=== PATIENT | female | born 1965 | race Caucasian/White ===

== ENCOUNTER → 2019-05-03 | Outpatient (CLI) | payer BC ==
[~2019-05-03] MED LIST: REGADENOSON 0.4 MG/5 ML DISP.SYRIN. IV ONE
--- NOTE | 2019-05-03 11:40 | PCVCIMAG ---
APPROVED REPORT Study performed: 05/03/2019 09:12:20 EXAM: Comprehensive 2D, Doppler, and color-flow Echocardiogram Patient Location: Echo lab Status: routine BSA: 1.97 HR: 58 bpmBP: 110/80 mmHg Rhythm: NSR Other Information Study Quality: Technically Difficult Risk Factors: Cardiac Risk Factors: Hyperlipidemia, Smoking Indications Abnormal ECG Palpitations Pre op Hip Surgery 2D Dimensions IVSd: 8.27 (7-11mm)LVOT Diam: 18.15 (18-24mm) LVDd: 44.31 mm PWd: 8.11 (7-11mm)Ascending Ao: 27.48 (22-36mm) LVDs: 35.10 (25-40mm) Left Atrium: 33.77 (27-40mm) Aortic Root: 27.41 mm LV Single Plane 4CH: 52.69 % LV Single Plane 2CH: 48.65 % Volumes Left Atrial Volume (Systole) Single Plane 4CH: 24.39 mLSingle Plane 2CH: 54.90 mL LA ESV Index: 19.00 mL/m2 Aortic Valve AoV Peak Antonio.: 1.36 m/s AO Peak Gr.: 7.43 mmHg Mitral Valve E/A Ratio: 1.0 MV Decel. Time: 186.03 ms MV E Max Antonio.: 0.99 m/s MV A Antonio.: 1.04 m/s IVRT: 89.97 ms TDI E/Lateral E': 12.38E/Medial E': 9.00 Medial E' Antonio.: 0.11 m/s Lateral E' Antonio.: 0.08 m/s Pulmonary Valve PV Peak Gr.: 1.61 mmHg Pulmonary Vein P Vein S: 0.50 m/sP Vein A: 0.44 m/s P Vein D: 0.37 m/sP Vein A Dur.: 128.0 msec P Vein S/D Ratio: 1.35 Left Ventricle The left ventricle is normal size. There is normal LV segmental wall motion. There is normal left ventricular wall thickness. Left ventricular systolic function is normal. The left ventricular ejection fraction is within the normal range. LVEF is >55%. Right Ventricle The right ventricle is normal size. The right ventricular systolic function is normal. Atria The left atrium size is normal. The right atrium size is normal. Aortic Valve The aortic valve is normal in structure. No aortic regurgitation is present. There is no aortic valvular stenosis. Mitral Valve The mitral valve is normal in structure. Trace mitral regurgitation. No evidence of mitral valve stenosis. Tricuspid Valve The tricuspid valve is normal in structure. There is no tricuspid valve regurgitation noted. Pulmonic Valve The pulmonary valve is normal in structure. There is no pulmonic valvular regurgitation. Great Vessels The aortic root is normal in size. IVC is normal in size and collapses >50% with inspiration. Pericardium There is no pericardial effusion. <Conclusion> The left ventricle is normal size. LVEF is >55%. The aortic valve is normal in structure. The mitral valve is normal in structure. Trace mitral regurgitation. The tricuspid valve is normal in structure. The pulmonary valve is normal in structure. There is no pericardial effusion.
--- NOTE | 2019-05-04 12:32 | PCVCIMAG ---
APPROVED REPORT Imaging Protocol: Rest Tc-99m/Stress Tc-99m 1 day Study performed: 05/03/2019 10:17:01 Indication: Palpitations, Chest pain, Pre op Patient Location: Out-Patient Stress Nurse: Mary Ellen Francisco RN, Elisa Torres RN GA Tech:Sarthak PerezCECE Ht: 5 ft 5 in Wt: 200 lbs BSA: 1.98 m2 HR: 51 bpm BP: 129/73 mmHg BMI: 33.2 Rhythm: Sinus Bradycardia, Incomplete RBBB Medical History Medical History: Age, Hyperlipidemia, HTN, Family Hx of CAD, Smoker Medications: Albuterol, Xanax Allergies: No known drug allergies Resting Data Rest SPECT myocardial perfusion imaging was performed in supine position 45 minutes following the intravenous injection of 11.2 mCi of Tc-99m Sestamibi. Time of rest injection: 1000 Date: 05/03/2019 Administration Route: IV Administration Site: Right Arm Pharmacologic Stress Pharmacologic stress test was performed by injecting Regadenoson 0.4 mg IV push over 10-15 seconds immediately followed by the intravenous injection of 34.2 mCi of Tc-99m Sestamibi. Time of stress injection: 1110 Date: 05/03/2019 Administration Route: IV Administration Site: Right Arm Gated Stress SPECT was performed 45 minutes after stress injection. The images were gated to evaluate regional wall motion and calculate left ventricular ejection fraction. Stress Test Details Stress Test: Pharmacologic stress testing performed using 0.4 mg of regadenoson per 5 mL given IV over 10 seconds. Reason for pharmacologic stress test: Hip problems. HRMax Heart Rate (APMHR): 165 bpm Resting HR: 51 bpmTarget HR (85% APMHR): 140 bpm Max HR Achieved: 75 bpm % of APMHR: 45 Recovery HR: 69 bpm BP Resting BP: 129/73 mmHg Max BP: 103/64 mmHg Recovery BP: 115/67 mmHg ECG Resting ECG: Sinus Bradycardia, Incomplete RBBB Stress ECG: Sinus Rhythm, Incomplete RBBB Arrhythmia: PVC's Recovery ECG: Sinus Rhythm, Incomplete RBBB Clinical Reason for Termination: Completed protocol Stress Symptoms: Dyspnea Symptoms resolved with caffeine. Stress ECG Conclusion 1. Adequate response to intravenous Lexiscan 2. Inadequate heart rate for ECG diagnosis Study Data Post stress, the left ventricular ejection was 81%.. SSS: 0 SRS: 1 SDS: 0 TID = 1.10. Perfusion There is a small area of mildly reduced uptake in the apical segment of the anterior wall which is seen on the stress images as well as the resting images. This area thickens and moves normally and is most consistent with attenuation artifact. Wall Motion Normal left ventricular wall motion. Nuclear Conclusion ECG Findings: non-diagnostic Clinical Findings: negative for ischemia Nuclear Findings: negative for ischemia Exercise Capacity: not assessed Left Ventricular Function: normal 1. Low risk study 2. Post stress left atrial ejection fraction 81% with normal contractility Interpreted by: Sage Pina MD Electronically Approved: 05/04/2019 12:31:58 <Conclusion> 1. Adequate response to intravenous Lexiscan 2. Inadequate heart rate for ECG diagnosis
== END | disposition home or self-care (01) ==
LOC: PCVCIMAG 09:16
PROVIDERS: ATTEND Internal Medicine
DX: Z01.810 Encounter for preprocedural cardiovascular examination (principal); Z90.49 Acquired absence of other specified parts of digestive tract; Z90.09 Acquired absence of other part of head and neck; Z82.49 Family history of ischemic heart disease and other diseases of the circulatory system; F17.200 Nicotine dependence, unspecified, uncomplicated
CPT/HCPCS: 78452; 93017; 93306; A9500; J2785